=== PATIENT | male | born 1960 | race Caucasian/White ===

== ENCOUNTER 2019-03-22 11:19 | Inpatient (IN) | payer OTHER ==
[2019-03-22 11:43] VITALS: BMI 26.5
--- NOTE | 2019-03-22 12:43 | HP ---
CIWA Score Nausea/Vomitin Muscle Tremors: 3 Agitation: 2 Paroxysmal Sweats: 2 Orientation: 1-Uncertain about Date Tacttile Disturbances: 1-Very Mild Itch/Numbness Auditory Disturbances: 4-Moderate Hallucination Visual Disturbances: 1-Very Mild Sensitivity Headache: 5-Severe - Admission Criteria OASAS Guidelines: Admission for Medically Managed Detox: Requires at least one of the followin. CIWA greater than 12 2. Seizures within the past 24 hours 3. Delirium tremens within the past 24 hours 4. Hallucinations within the past 24 hours 5. Acute intervention needed for co occurring medical disorder 6. Acute intervention needed for co occurring psychiatric disorder 7. Severe withdrawal that cannot be handled at a lower level of care (continued vomiting, continued diarrhea, abnormal vital signs) requiring intravenous medication and/or fluids 8. Admitting History and Physical - Admission Chief Complaint: " I want to stop drinking." History of Present Illness: Patient is a 58 year old male who was in detox at another institution but had a seizure and sent to [facility] on the same day of the admission. He was then picked up from that hospital to bring here for continuation of detox. He was getting IV hydration while in [facility] He admits to having withdrawals and intoxication and having withdrawal seizure yesterday. He does not remember the detox he was admitted to prior to going to [facility]. He denies smoking, former smoker stopped 7 years ago PMH: HTN, Hypothyroidism, Chronic back pain Psurg: Back surgery for pinched nerve. All: None - Past Surgical History Additional Past Surgical History: spinal surgery - Advance Directives Advance Directives: No: Living Will, Health Care Proxy, DNR - Smoking History Smoking history: Former smoker Have you smoked in the past 12 months: No - Alcohol/Substance Use Hx Alcohol Use: Yes (1 pint of vodka daily) Number of Drinks Daily: 10 - Social History Usual Living Arrangement: Yes: Alone, Other (senior living) Do you think of yourself as: Straight/Heterosexual ADL: Independent Occupation: unemployed construction History of Recent Travel: No Admission ROS [facility] Chief Complaint: " I want to enter detox to stop drinking." Allergies/Adverse Reactions: Allergies Allergy/AdvReac Type Severity Reaction Status Date / Time No Known Allergies Allergy Verified 03/22/19 11:32 History of Present Illness: Patient is a 58 year old male who was in detox at another institution but had a seizure and sent to [facility] on the same day of the admission. He was then picked up from that hospital to bring here for continuation of detox. He was getting IV hydration while in [facility] He admits to having withdrawals and intoxication and having withdrawal seizure yesterday. He does not remember the detox he was admitted to prior to going to [facility]. He denies smoking, former smoker stopped 7 years ago PMH: HTN, Hypothyroidism, Chronic back pain Psurg: Back surgery for pinched nerve. All: None Exam Limitations: Physical Impairment, Other (chornic back pain from spinal surgery pinched nerve) - Ebola screening Have you traveled outside of the country in the last 21 days: No Have you had contact with anyone from an Ebola affected area: No Have you been sick,other than usual withdrawal symptoms: No Do you have a fever: No - Review of Systems Constitutional: Chills, Diaphoresis EENT: reports: Blurred Vision Respiratory: reports: No Symptoms reported Cardiac: reports: No Symptoms Reported GI: reports: No Symptoms Reported : reports: No Symptoms Reported Musculoskeletal: reports: Back Pain Integumentary: reports: No Symptoms Reported Neuro: reports: Headache, Seizure, Tremors Endocrine: reports: No Symptoms Reported Hematology: reports: No Symptoms Reported Psychiatric: reports: Judgement Intact, Mood/Affect Appropiate, Orientated x3 Other Systems: Reviewed and Negative Patient History - Patient Medical History Hx Anemia: No Hx Asthma: No Hx Chronic Obstructive Pulmonary Disease (COPD): No Hx Cancer: No Hx Cardiac Disorders: No Hx Congestive Heart Failure: No Hx Hypertension: Yes Hx Hypercholesterolemia: No Hx Pacemaker: No HX Cerebrovascular Accident: No Hx Seizures: Yes Hx Dementia: No Hx Diabetes: No Hx Gastrointestinal Disorders: No Hx Liver Disease: No Hx Genitourinary Disorders: No Hx Sexually Transmitted Disorders: No Hx Renal Disease (ESRD): No Hx Thyroid Disease: No Hx Human Immunodeficiency Virus (HIV): No Hx Hepatitis C: No Hx Depression: No Hx Suicide Attempt: No Hx Bipolar Disorder: No Hx Schizophrenia: No Other Medical History: hypothyroidism - Patient Surgical History Past Surgical History: Yes Hx Neurologic Surgery: Yes (spinal surger) - PPD History Previous Implant?: Yes Documented Results: Negative w/o proof Implanted On Prior [facility] Admission?: No Date: 02/10/19 Results: negative PPD to be Administered?: Yes - Smoking Cessation Smoking history: Former smoker Have you smoked in the past 12 months: No Hx Chewing Tobacco Use: No Initiated information on smoking cessation: No - Substances abused Alcohol Substance route: Oral Frequency: Daily Amount used: 5 pints of vodka &5-6 beers Age of first use: 14 Date of last use: 03/21/19 Admission Physical Exam [facility] - Vital Signs Vital Signs: Vital Signs - 24 hr 03/22/19 11:32 Temperature 97.4 F L Pulse Rate 67 Respiratory 20 Rate Blood Pressure 177/108 H - Physical General Appearance: Yes: Nourished HEENTM: Yes: EOMI, Hearing grossly Normal, Normal ENT Inspection, Normocephalic , Normal Voice, TIAGO, Pharynx Normal, Tm's normal Respiratory: Yes: Chest Non-Tender, Lungs Clear, Normal Breath Sounds, No Respiratory Distress, No Accessory Muscle Use Neck: Yes: No masses,lesions,Nodules, Trachea in good position Breast: Yes: Within Normal Limits, Axillae without masses, Breasts Symetrical Cardiology: Yes: Regular Rhythm, Regular Rate, S1, S2 Abdominal: Yes: Normal Bowel Sounds, Non Tender, Flat Genitourinary: Yes: Within Normal Limits Back: Yes: Within Normal Limits Musculoskeletal: Yes: full range of Motion, Gait Steady, Pelvis Stable Extremities: Yes: Normal Capillary Refill, Normal Inspection, Normal Range of Motion, Non-Tender Neurological: Yes: emergency operator II-XII NML intact, Fully Oriented, Alert, Motor Strength 5/5, Normal Mood/Affect, Normal Response Integumentary: Yes: Normal Color, Warm Lymphatic: Yes: Within Normal Limits - Diagnostic (1) Alcohol dependence with uncomplicated withdrawal Current Visit: Yes Status: Acute (2) Chronic back pain Current Visit: Yes Status: Acute (3) H/O Spinal surgery Current Visit: Yes Status: Acute (4) Hypertension Current Visit: Yes Status: Acute (5) Seizure disorder Current Visit: Yes Status: Acute Cleared for Admission [facility] - Detox or Rehab [facility] Level of Care: Medically Managed Detox Regimen/Protocol: Librium Screened but not Admitted - Documentation of Visit Screened but not Admitted: No Breathalyzer - Breathalyzer Breathalyzer: 0 Urine Drug Screen - Test Device Lot number: [id number] Expiration date: 11/20/20 - Control Is test valid?: Yes - Results Drug screen NEGATIVE: No Urine drug screen results: BUP-Suboxone Inpatient Rehab Admission - Rehab Decision to Admit Inpatient rehab admission?: No
[2019-03-22] MEDS ORDERED: chlordiazePOXIDE HCL 25 MG CAPSULE PO PRN (12:52)
[2019-03-22] MEDS ORDERED: MENTHOL/PHENOL 1 EACH UD MM PRN (12:52)
[2019-03-22] MEDS ORDERED: MAGNESIUM CITRATE 300 ML BOTTLE PO PRN (12:52)
[2019-03-22] MEDS ORDERED: IBUPROFEN 400 MG TABLET (FP) PO PRN (12:52)
[2019-03-22] MEDS ORDERED: ACETAMINOPHEN 325 MG TABLET (FP) PO PRN (12:52)
[2019-03-22] MEDS ORDERED: MAGNESIUM HYDROX 2400MG/30ML ORAL SUSPENSION 30 ML CUP PO PRN (12:52)
[2019-03-22] MEDS ORDERED: BISMUTH SUBSALICYLATE 262 MG/15 ML BTL PO PRN (12:52)
[2019-03-22] MEDS ORDERED: hydrOXYzine PAMOATE 25 MG CAPSULE (FP) PO PRN (12:52)
[2019-03-22 18:01] LABS: ALBUMIN 3.4 g/dl (3.4-5.0); BILIRUBIN,TOTAL 0.5 mg/dL (0.2-1); BLOOD UREA NITROGEN 13.1 mg/dL (7-18); CALCIUM 8.1 mg/dL (8.5-10.1); CREATININE 0.9 mg/dL (0.55-1.3); POTASSIUM 3.7 mmol/L (3.5-5.1); TOT PROT 7.3 g/dl (6.4-8.2)
[2019-03-22] MEDS: chlordiazePOXIDE HCL 25 MG CAPSULE PO SCH ×2 (18:30→22:07)
[2019-03-22 18:48] LABS: HEMATOCRIT 34.8 % (35.4-49); HEMOGLOBIN 10.4 GM/dL (11.7-16.9); MCH 22.6 pg (25.7-33.7); MCHC 29.8 g/dl (32.0-35.9); MEAN CELL VOLUME 75.7 fl (80-96); MEAN PLT VOLUME 8.6 fl (7.5-11.1); PLATELET COUNT 200 K/MM3 (134-434); RBC 4.59 M/mm3 (4.00-5.60); RDW 20.5 % (11.9-15.9); WHITE BLOOD COUNT 6.2 K/mm3 (4.0-10.0)
[2019-03-22] MEDS: THIAMINE HCL 100 MG TABLET (FP) PO SCH (22:07)
[2019-03-22] MEDS: MELATONIN 5 MG TABLETS PO PRN (22:08)
[2019-03-23] MEDS: chlordiazePOXIDE HCL 25 MG CAPSULE PO SCH ×4 (05:52→22:11)
[2019-03-23] MEDS: LEVOTHYROXINE NA 25 MCG TABLET (FP) PO SCH (06:09)
--- NOTE | 2019-03-23 10:00 | PN ---
[facility] CIWA - CIWA Score Nausea/Vomitin-No Nausea/No Vomiting Muscle Tremors: 3 Anxiety: 2 Agitation: 3 Paroxysmal Sweats: 3 Orientation: 0-Oriented Tacttile Disturbances: 0-None Auditory Disturbances: 0-None Visual Disturbances: 0-None Headache: 0-None Present CIWA-Ar Total Score: 11 S Progress Note (SOAP) Subjective: sweats mild shakes interrupted sleep agitation Objective: 03/23/19 09:58 Vital Signs Temperature 97.9 F 03/23/19 09:28 Pulse Rate 66 03/23/19 09:28 Respiratory Rate 18 03/23/19 09:28 Blood Pressure 126/74 03/23/19 09:28 O2 Sat by Pulse Oximetry (%) Laboratory Tests 03/22/19 03/22/19 03/22/19 13:10 13:10 13:10 WBC 6.2 RBC 4.59 Hgb 10.4 L Hct 34.8 L MCV 75.7 L MCH 22.6 L MCHC 29.8 L RDW 20.5 H Plt Count 200 MPV 8.6 Sodium 140 Potassium 3.7 Chloride 104 Carbon Dioxide 28 Anion Gap 7 L BUN 13.1 Creatinine 0.9 Est GFR (CKD-EPI)AfAm 107.97 Est GFR (CKD-EPI)NonAf 93.16 Random Glucose 96 Calcium 8.1 L Total Bilirubin 0.5 AST 51 H ALT 37 Alkaline Phosphatase 86 Total Protein 7.3 Albumin 3.4 RPR Titer Nonreactive HIV 1&2 Antibody Screen HIV P24 Antigen 03/22/19 13:10 WBC RBC Hgb Hct MCV MCH MCHC RDW Plt Count MPV Sodium Potassium Chloride Carbon Dioxide Anion Gap BUN Creatinine Est GFR (CKD-EPI)AfAm Est GFR (CKD-EPI)NonAf Random Glucose Calcium Total Bilirubin AST ALT Alkaline Phosphatase Total Protein Albumin RPR Titer HIV 1&2 Antibody Screen Negative HIV P24 Antigen Negative labs noted low H:H aaox3 ambulating no acute distress Assessment: 03/23/19 09:59 withdrawals Plan: continue detox increase fluids iron supplement ordered repeat labs
[2019-03-23] MEDS: PRENATAL VITAMINS W/ FOLIC ACID TABLET (FP) PO SCH (10:23)
[2019-03-23] MEDS: BUPRENORPHINE/NALOXONE 8 MG/2 MG FILM PACKET SL SCH (10:23)
[2019-03-23] MEDS: THIAMINE HCL 100 MG TABLET (FP) PO SCH (22:11)
[2019-03-24] MEDS: METHOCARBAMOL 500 MG TABLET PO PRN (02:13)
[2019-03-24] MEDS: chlordiazePOXIDE HCL 25 MG CAPSULE PO SCH ×4 (05:34→22:18)
[2019-03-24] MEDS: LEVOTHYROXINE NA 25 MCG TABLET (FP) PO SCH (06:58)
[2019-03-24 09:44] LABS: BASO % 0.7 % (0-2.0); EOS % 5.7 % (0-4.5); HEMATOCRIT 31.2 % (35.4-49); HEMOGLOBIN 10.1 GM/dL (11.7-16.9); LYMPH % 23.8 % (8-40); MCH 24.4 pg (25.7-33.7); MCHC 32.3 g/dl (32.0-35.9); MEAN CELL VOLUME 75.7 fl (80-96); MONO % 11.4 % (3.8-10.2); NEUT % 58.4 % (42.8-82.8); PLATELET COUNT 161 K/MM3 (134-434); RBC 4.13 M/mm3 (4.00-5.60); WHITE BLOOD COUNT 5.6 K/mm3 (4.0-10.0)
[2019-03-24] MEDS: BUPRENORPHINE/NALOXONE 8 MG/2 MG FILM PACKET SL SCH (10:23)
[2019-03-24] MEDS: PRENATAL VITAMINS W/ FOLIC ACID TABLET (FP) PO SCH (10:23)
--- NOTE | 2019-03-24 11:40 | PN ---
S CIWA - CIWA Score Nausea/Vomitin-No Nausea/No Vomiting Muscle Tremors: 2 Anxiety: 1-Mildly Anxious Agitation: 2 Paroxysmal Sweats: 2 Orientation: 0-Oriented Tacttile Disturbances: 0-None Auditory Disturbances: 0-None Visual Disturbances: 0-None Headache: 0-None Present CIWA-Ar Total Score: 7 BHS Progress Note (SOAP) Subjective: sweats shakes interrupted sleep Objective: 03/24/19 11:38 Vital Signs Temperature 96.3 F L 03/24/19 09:37 Pulse Rate 63 03/24/19 09:37 Respiratory Rate 20 03/24/19 09:37 Blood Pressure 101/65 03/24/19 09:37 O2 Sat by Pulse Oximetry (%) Laboratory Tests 03/22/19 03/22/19 03/22/19 13:10 13:10 13:10 WBC 6.2 RBC 4.59 Hgb 10.4 L Hct 34.8 L MCV 75.7 L MCH 22.6 L MCHC 29.8 L RDW 20.5 H Plt Count 200 MPV 8.6 Absolute Neuts (auto) Neutrophils % Lymphocytes % Monocytes % Eosinophils % Basophils % Nucleated RBC % Sodium 140 Potassium 3.7 Chloride 104 Carbon Dioxide 28 Anion Gap 7 L BUN 13.1 Creatinine 0.9 Est GFR (CKD-EPI)AfAm 107.97 Est GFR (CKD-EPI)NonAf 93.16 Random Glucose 96 Calcium 8.1 L Total Bilirubin 0.5 AST 51 H ALT 37 Alkaline Phosphatase 86 Total Protein 7.3 Albumin 3.4 RPR Titer Nonreactive HIV 1&2 Antibody Screen HIV P24 Antigen 03/22/19 03/24/19 13:10 07:40 WBC 5.6 RBC 4.13 Hgb 10.1 L Hct 31.2 L MCV 75.7 L MCH 24.4 L MCHC 32.3 RDW 20.0 H Plt Count 161 MPV 9.0 Absolute Neuts (auto) 3.3 Neutrophils % 58.4 Lymphocytes % 23.8 Monocytes % 11.4 H Eosinophils % 5.7 H Basophils % 0.7 Nucleated RBC % 0 Sodium Potassium Chloride Carbon Dioxide Anion Gap BUN Creatinine Est GFR (CKD-EPI)AfAm Est GFR (CKD-EPI)NonAf Random Glucose Calcium Total Bilirubin AST ALT Alkaline Phosphatase Total Protein Albumin RPR Titer HIV 1&2 Antibody Screen Negative HIV P24 Antigen Negative labs noted low H:H; iron supplements ordered aaox3 ambulating no acute distress Assessment: 03/24/19 11:39 withdrawals Plan: continue detox increase fluids iron supplement ordered
[2019-03-24] MEDS: FERROUS SO4 325 MG TABLET (FP) PO SCH ×2 (13:25→16:32)
[2019-03-24] MEDS: THIAMINE HCL 100 MG TABLET (FP) PO SCH (22:17)
[2019-03-25] MEDS ORDERED: chlordiazePOXIDE HCL 10 MG CAPSULE PO PRN
[2019-03-25] MEDS: chlordiazePOXIDE HCL 10 MG CAPSULE PO SCH ×4 (05:39→22:16)
[2019-03-25] MEDS: LEVOTHYROXINE NA 25 MCG TABLET (FP) PO SCH (06:28)
[2019-03-25] MEDS: FERROUS SO4 325 MG TABLET (FP) PO SCH ×3 (07:57→17:16)
[2019-03-25] MEDS: PRENATAL VITAMINS W/ FOLIC ACID TABLET (FP) PO SCH (10:11)
[2019-03-25] MEDS: BUPRENORPHINE/NALOXONE 8 MG/2 MG FILM PACKET SL SCH ×2 (10:14→22:17)
--- NOTE | 2019-03-25 10:26 | PN ---
S CIWA - CIWA Score Nausea/Vomitin-No Nausea/No Vomiting Muscle Tremors: 3 Anxiety: 2 Agitation: 2 Paroxysmal Sweats: 1-Minimal Palms Moist Orientation: 0-Oriented Tacttile Disturbances: 0-None Auditory Disturbances: 0-None Visual Disturbances: 0-None Headache: 0-None Present CIWA-Ar Total Score: 8 BHS Progress Note (SOAP) Subjective: i want my suboxone changed to twice a day sweats interrupted sleep agitation Objective: 03/25/19 10:26 Vital Signs Temperature 98.6 F 03/25/19 09:27 Pulse Rate 78 03/25/19 09:27 Respiratory Rate 18 03/25/19 09:27 Blood Pressure 122/90 03/25/19 09:27 O2 Sat by Pulse Oximetry (%) Laboratory Tests 03/22/19 03/22/19 03/22/19 13:10 13:10 13:10 WBC 6.2 RBC 4.59 Hgb 10.4 L Hct 34.8 L MCV 75.7 L MCH 22.6 L MCHC 29.8 L RDW 20.5 H Plt Count 200 MPV 8.6 Absolute Neuts (auto) Neutrophils % Lymphocytes % Monocytes % Eosinophils % Basophils % Nucleated RBC % Sodium 140 Potassium 3.7 Chloride 104 Carbon Dioxide 28 Anion Gap 7 L BUN 13.1 Creatinine 0.9 Est GFR (CKD-EPI)AfAm 107.97 Est GFR (CKD-EPI)NonAf 93.16 Random Glucose 96 Calcium 8.1 L Total Bilirubin 0.5 AST 51 H ALT 37 Alkaline Phosphatase 86 Total Protein 7.3 Albumin 3.4 RPR Titer Nonreactive HIV 1&2 Antibody Screen HIV P24 Antigen 03/22/19 03/24/19 13:10 07:40 WBC 5.6 RBC 4.13 Hgb 10.1 L Hct 31.2 L MCV 75.7 L MCH 24.4 L MCHC 32.3 RDW 20.0 H Plt Count 161 MPV 9.0 Absolute Neuts (auto) 3.3 Neutrophils % 58.4 Lymphocytes % 23.8 Monocytes % 11.4 H Eosinophils % 5.7 H Basophils % 0.7 Nucleated RBC % 0 Sodium Potassium Chloride Carbon Dioxide Anion Gap BUN Creatinine Est GFR (CKD-EPI)AfAm Est GFR (CKD-EPI)NonAf Random Glucose Calcium Total Bilirubin AST ALT Alkaline Phosphatase Total Protein Albumin RPR Titer HIV 1&2 Antibody Screen Negative HIV P24 Antigen Negative labs noted labs repeated for tomorrow morning aaox3 ambulating no acute distress Assessment: 03/25/19 10:28 mild withdrawals Plan: continue detox suboxone ordered changed to bid as per pt request.
[2019-03-25] MEDS: THIAMINE HCL 100 MG TABLET (FP) PO SCH (22:16)
[2019-03-25] MEDS: MELATONIN 5 MG TABLETS PO PRN (22:17)
[2019-03-26] MEDS: METHOCARBAMOL 500 MG TABLET PO PRN ×2 (05:30→22:14)
[2019-03-26] MEDS: chlordiazePOXIDE HCL 10 MG CAPSULE PO SCH ×2 (05:30→17:29)
[2019-03-26] MEDS: FERROUS SO4 325 MG TABLET (FP) PO SCH ×3 (07:33→17:27)
[2019-03-26] MEDS: LEVOTHYROXINE NA 25 MCG TABLET (FP) PO SCH (07:33)
[2019-03-26 09:34] LABS: ALBUMIN 2.7 g/dl (3.4-5.0); BILIRUBIN,TOTAL 0.4 mg/dL (0.2-1); BLOOD UREA NITROGEN 11.3 mg/dL (7-18); CALCIUM 8.2 mg/dL (8.5-10.1); POTASSIUM 4.3 mmol/L (3.5-5.1); TOT PROT 5.9 g/dl (6.4-8.2)
[2019-03-26] MEDS: BUPRENORPHINE/NALOXONE 8 MG/2 MG FILM PACKET SL SCH ×2 (09:42→22:15)
[2019-03-26] MEDS: PRENATAL VITAMINS W/ FOLIC ACID TABLET (FP) PO SCH (09:42)
[2019-03-26] MEDS: ACETAMINOPHEN 325 MG TABLET (FP) PO PRN (09:44)
[2019-03-26] MEDS ORDERED: cloNIDine HCL 0.1 MG TABLET PO PRN (16:35)
--- NOTE | 2019-03-26 16:37 | PN ---
S CIWA - CIWA Score Nausea/Vomitin-No Nausea/No Vomiting Muscle Tremors: None Anxiety: 2 Agitation: 2 Paroxysmal Sweats: 2 Orientation: 0-Oriented Tacttile Disturbances: 0-None Auditory Disturbances: 0-None Visual Disturbances: 0-None Headache: 0-None Present CIWA-Ar Total Score: 6 BHS Progress Note (SOAP) Subjective: Tremor, sweating, back pain Objective: 03/26/19 16:32 Last Vital Signs Temp Pulse Resp BP Pulse Ox 98.2 F 76 20 152/82 03/26/19 14:03 03/26/19 14:03 03/26/19 14:03 03/26/19 14:03 Elevated b/p: denies htn (not on med) Laboratory Tests 03/22/19 03/22/19 03/22/19 13:10 13:10 13:10 WBC 6.2 RBC 4.59 Hgb 10.4 L Hct 34.8 L MCV 75.7 L MCH 22.6 L MCHC 29.8 L RDW 20.5 H Plt Count 200 MPV 8.6 Absolute Neuts (auto) Neutrophils % Lymphocytes % Monocytes % Eosinophils % Basophils % Nucleated RBC % Sodium 140 Potassium 3.7 Chloride 104 Carbon Dioxide 28 Anion Gap 7 L BUN 13.1 Creatinine 0.9 Est GFR (CKD-EPI)AfAm 107.97 Est GFR (CKD-EPI)NonAf 93.16 Random Glucose 96 Calcium 8.1 L Total Bilirubin 0.5 AST 51 H ALT 37 Alkaline Phosphatase 86 Total Protein 7.3 Albumin 3.4 RPR Titer Nonreactive HIV 1&2 Antibody Screen HIV P24 Antigen 03/22/19 03/24/19 03/26/19 13:10 07:40 07:50 WBC 5.6 RBC 4.13 Hgb 10.1 L Hct 31.2 L MCV 75.7 L MCH 24.4 L MCHC 32.3 RDW 20.0 H Plt Count 161 MPV 9.0 Absolute Neuts (auto) 3.3 Neutrophils % 58.4 Lymphocytes % 23.8 Monocytes % 11.4 H Eosinophils % 5.7 H Basophils % 0.7 Nucleated RBC % 0 Sodium 136 Potassium 4.3 Chloride 102 Carbon Dioxide 31 Anion Gap 3 L BUN 11.3 Creatinine 1.0 Est GFR (CKD-EPI)AfAm 95.06 Est GFR (CKD-EPI)NonAf 82.02 Random Glucose 83 Calcium 8.2 L Total Bilirubin 0.4 AST 25 ALT 23 Alkaline Phosphatase 67 Total Protein 5.9 L Albumin 2.7 L RPR Titer HIV 1&2 Antibody Screen Negative HIV P24 Antigen Negative Labs reviewed: anemia, mild Assessment: 03/26/19 16:33 Withdrawal sxs Plan: Continue detox Encouraged PO water intake Scheduled for discharge tomorrow Anemia: most likely due to substance use, on iron supplement, follow up with PCP for management Elevated b/p: denies htn, start clonidine prn
[2019-03-26] MEDS: MAG HYDROX/AL HYDROX/SIMETH 30 ML UNIT-DOSE CUP PO PRN (17:30)
[2019-03-26] MEDS: THIAMINE HCL 100 MG TABLET (FP) PO SCH (22:14)
[2019-03-27] MEDS: ACETAMINOPHEN 325 MG TABLET (FP) PO PRN (01:53)
[2019-03-27] MEDS: MAG HYDROX/AL HYDROX/SIMETH 30 ML UNIT-DOSE CUP PO PRN (01:53)
[2019-03-27] MEDS ORDERED: IBUPROFEN 400 MG TABLET (FP) PO PRN (01:58)
[2019-03-27] MEDS ORDERED: chlordiazePOXIDE HCL 10 MG CAPSULE PO ONE (05:00)
[2019-03-27 05:48] VITALS: BP 145/77; PULSE 82; TEMP 98.1
[2019-03-27] MEDS: LEVOTHYROXINE NA 25 MCG TABLET (FP) PO SCH (06:01)
[2019-03-27] MEDS ORDERED: hydrOXYzine PAMOATE 25 MG CAPSULE (FP) PO PRN (06:17)
[2019-03-27] MEDS: METHOCARBAMOL 500 MG TABLET PO PRN (06:39)
[2019-03-27] MEDS: FERROUS SO4 325 MG TABLET (FP) PO SCH ×2 (07:44→11:17)
--- NOTE | 2019-03-27 09:15 | DS ---
[facility] Detox Discharge Summary Admission Date: 03/22/19 Discharge Date: 03/27/19 - History Present History: Alcohol Dependence - Physical Exam Results Vital Signs: Vital Signs Temperature 98.1 F 03/27/19 05:47 Pulse Rate 82 03/27/19 05:47 Respiratory Rate 18 03/27/19 05:47 Blood Pressure 145/77 03/27/19 05:47 O2 Sat by Pulse Oximetry (%) Pertinent Admission Physical Exam Findings: pt arrived in withdrawals Vital Signs Temperature 98.1 F 03/27/19 05:47 Pulse Rate 82 03/27/19 05:47 Respiratory Rate 18 03/27/19 05:47 Blood Pressure 145/77 03/27/19 05:47 O2 Sat by Pulse Oximetry (%) Laboratory Tests 03/22/19 03/22/19 03/22/19 13:10 13:10 13:10 WBC 6.2 RBC 4.59 Hgb 10.4 L Hct 34.8 L MCV 75.7 L MCH 22.6 L MCHC 29.8 L RDW 20.5 H Plt Count 200 MPV 8.6 Absolute Neuts (auto) Neutrophils % Lymphocytes % Monocytes % Eosinophils % Basophils % Nucleated RBC % Sodium 140 Potassium 3.7 Chloride 104 Carbon Dioxide 28 Anion Gap 7 L BUN 13.1 Creatinine 0.9 Est GFR (CKD-EPI)AfAm 107.97 Est GFR (CKD-EPI)NonAf 93.16 Random Glucose 96 Calcium 8.1 L Total Bilirubin 0.5 AST 51 H ALT 37 Alkaline Phosphatase 86 Total Protein 7.3 Albumin 3.4 RPR Titer Nonreactive HIV 1&2 Antibody Screen HIV P24 Antigen 03/22/19 03/24/19 03/26/19 13:10 07:40 07:50 WBC 5.6 RBC 4.13 Hgb 10.1 L Hct 31.2 L MCV 75.7 L MCH 24.4 L MCHC 32.3 RDW 20.0 H Plt Count 161 MPV 9.0 Absolute Neuts (auto) 3.3 Neutrophils % 58.4 Lymphocytes % 23.8 Monocytes % 11.4 H Eosinophils % 5.7 H Basophils % 0.7 Nucleated RBC % 0 Sodium 136 Potassium 4.3 Chloride 102 Carbon Dioxide 31 Anion Gap 3 L BUN 11.3 Creatinine 1.0 Est GFR (CKD-EPI)AfAm 95.06 Est GFR (CKD-EPI)NonAf 82.02 Random Glucose 83 Calcium 8.2 L Total Bilirubin 0.4 AST 25 ALT 23 Alkaline Phosphatase 67 Total Protein 5.9 L Albumin 2.7 L RPR Titer HIV 1&2 Antibody Screen Negative HIV P24 Antigen Negative pt is aaox3 ambulating no acute distress no s/s of withdrawal - Treatment Hospital Course: Detox Protocol Followed, Detoxed Safely, Responded well, Discharged Condition Good, Rehab Referral Accepted - Medication Discharge Medications: Ambulatory Orders Buprenorphine/Naloxone [Suboxone 8 mg/2Mg Sl Film -] 1 each SL TID 03/22/19 Levothyroxine [Synthroid -] 25 mcg PO DAILY 03/22/19 Meloxicam 15 mg PO DAILY 03/22/19 Tizanidine HCl 4 mg PO TID 03/22/19 - Diagnosis (1) Alcohol dependence with uncomplicated withdrawal Current Visit: Yes Status: Chronic (2) Chronic back pain Current Visit: Yes Status: Chronic Qualifiers: Back pain location: low back pain Back pain laterality: unspecified (3) H/O Spinal surgery Current Visit: Yes Status: Chronic (4) Hypertension Current Visit: Yes Status: Chronic Qualifiers: Hypertension type: essential hypertension Qualified Code(s): I10 - Essential (primary) hypertension (5) Seizure disorder Current Visit: Yes Status: Suspected - AMA Did Patient Leave Against Medical Advice: No
[2019-03-27] MEDS: PRENATAL VITAMINS W/ FOLIC ACID TABLET (FP) PO SCH (10:22)
[2019-03-27] MEDS: BUPRENORPHINE/NALOXONE 8 MG/2 MG FILM PACKET SL SCH (10:22)
== END 2019-03-27 10:20 | disposition home or self-care (01) | DRG 775 ==
LOC: YASAS 11:19 → Y6N 13:21
PROVIDERS: ADMIT Allergy & Immunology; ATTEND Allergy & Immunology
PROC: HZ2ZZZZ Detoxification Services for Substance Abuse Treatment (ICD-10-PCS; principal; 2019-03-22)
DX: F10.230 Alcohol dependence with withdrawal, uncomplicated (principal); I10 Essential (primary) hypertension; M54.5 Low back pain; G89.29 Other chronic pain; G40.909 Epilepsy, unspecified, not intractable, without status epilepticus; D64.9 Anemia, unspecified; E03.9 Hypothyroidism, unspecified; Z87.891 Personal history of nicotine dependence; Z98.890 Other specified postprocedural states
CPT/HCPCS: 36415; 80053; 85025; 85027; 86593; 87389

== ENCOUNTER 2019-06-28 19:08 | Inpatient (IN) | payer OTHER ==
[2019-06-28 22:04] VITALS: BMI 26.6
--- NOTE | 2019-06-28 22:25 | HP ---
CIWA Score - Admission Criteria OASAS Guidelines: Admission for Medically Managed Detox: Requires at least one of the followin. CIWA greater than 12 2. Seizures within the past 24 hours 3. Delirium tremens within the past 24 hours 4. Hallucinations within the past 24 hours 5. Acute intervention needed for co occurring medical disorder 6. Acute intervention needed for co occurring psychiatric disorder 7. Severe withdrawal that cannot be handled at a lower level of care (continued vomiting, continued diarrhea, abnormal vital signs) requiring intravenous medication and/or fluids 8. 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 Travel: No Admission [facility] Allergies/Adverse Reactions: Allergies Allergy/AdvReac Type Severity Reaction Status Date / Time No Known Allergies Allergy Verified 06/28/19 21:55 History of Present Illness: Click the Report Suspicious Activity button to report information related to controlled substance suspicious activity to the [facility] Patient History - Patient Medical History Hx Anemia: No Hx Asthma: No Hx Chronic Obstructive Pulmonary Disease (COPD): No Hx Cancer: No Hx Cardiac Disorders: No Hx Congestive Heart Failure: No Hx Hypertension: Yes Hx Hypercholesterolemia: No Hx Pacemaker: No HX Cerebrovascular Accident: No Hx Seizures: No Hx Dementia: No Hx Diabetes: No Hx Gastrointestinal Disorders: No Hx Liver Disease: No Hx Genitourinary Disorders: No Hx Sexually Transmitted Disorders: No Hx Renal Disease (ESRD): No Hx Thyroid Disease: No Hx Human Immunodeficiency Virus (HIV): No Hx Hepatitis C: No Hx Depression: Yes Hx Suicide Attempt: No Hx Bipolar Disorder: No Hx Schizophrenia: No - Patient Surgical History Past Surgical History: Yes Hx Neurologic Surgery: Yes (spinal surgery) Anesthesia Reaction: No - PPD History Date: 03/24/19 Results: negative - Smoking Cessation Smoking history: Former smoker Have you smoked in the past 12 months: No If you are a former smoker, when did you quit?: 2011 Hx Chewing Tobacco Use: No - Substances abused Heroin Other (specify): sniff Frequency: Daily Amount used: 1 bag Age of first use: 17 Date of last use: 06/27/19 Alcohol Substance route: Oral Amount used: 2 bottle vodka Age of first use: 16 Date of last use: 06/28/19 Admission Physical Exam [facility] - Vital Signs Vital Signs: Vital Signs - 24 hr 06/28/19 21:55 Temperature 97.7 F Pulse Rate 88 Respiratory 20 Rate Blood Pressure 150/84 Breathalyzer - Breathalyzer Breathalyzer: 0 POC Urine test - Test device test lot number: n/a Urine Drug Screen - Test Device Lot number: [id number] Expiration date: 12/20/20 - Control Is test valid?: Yes - Results Drug screen NEGATIVE: No Urine drug screen results: BZO-Benzodiazepines, BUP-Suboxone
--- NOTE | 2019-06-29 00:52 | HP ---
"CIWA Score Nausea/Vomitin (vomiting x 2) Muscle Tremors: 4-Moderate,w/Arms Extend Anxiety: 3 Agitation: 1-Slight > Activity Paroxysmal Sweats: 2 Orientation: 0-Oriented Tacttile Disturbances: 0-None Auditory Disturbances: 0-None Visual Disturbances: 0-None Headache: 4-Moderately Severe CIWA-Ar Total Score: 17 - Admission Criteria OASAS Guidelines: Admission for Medically Managed Detox: Requires at least one of the followin. CIWA greater than 12 2. Seizures within the past 24 hours 3. Delirium tremens within the past 24 hours 4. Hallucinations within the past 24 hours 5. Acute intervention needed for co occurring medical disorder 6. Acute intervention needed for co occurring psychiatric disorder 7. Severe withdrawal that cannot be handled at a lower level of care (continued vomiting, continued diarrhea, abnormal vital signs) requiring intravenous medication and/or fluids 8. Admitting History and Physical - Past Medical History Cardiovascular: Yes: HTN Musculoskeletal: Yes: Chronic low back pain - Smoking History Smoking history: Former smoker Have you smoked in the past 12 months: No If you are a former smoker, when did you quit?: 2012 - Alcohol/Substance Use Hx Alcohol Use: Yes Number of Drinks Daily: 10 History of Substance Use: reports: None - Social History ADL: Independent Occupation: unemployed construction History of Recent Travel: No Admission [facility] Chief Complaint: Alcohol withdrawal symptoms, on buprenorphine-naloxone 8-2 mg sl film Allergies/Adverse Reactions: Allergies Allergy/AdvReac Type Severity Reaction Status Date / Time No Known Allergies Allergy Verified 06/28/19 21:55 History of Present Illness: 58 years old male with a long history of alcohol and heroin dependence is seeking admission to detox. Patient last detox was for the period 05/02/2019- and he reports that he relapsed soon after discharge because he lost his of 30 years. He has medical history of hypertension, blood clots, ( bilateral legs), hypothyroid, seizure, chronic back pain and Confidential Drug Utilization Report Search Terms: forrest amos, 1960 Search Date: 06/28/2019 10:23:11 PM The Drug Utilization Report below displays all of the controlled substance prescriptions, if any, that your patient has filled in the last twelve months. The information displayed on this report is compiled from pharmacy submissions to the Department, and accurately reflects the information as submitted by the pharmacies. This report was requested by: Poppy Dunham | Reference #: [id number] You have not added a TWYLA number. Keeping your TWYLA number(s) up to date on the My TWYLA Numbers page will enable the separation of your prescriptions from others ' in the search results. Others' Prescriptions Patient Name: Forrest Amos Date: 1960 Address: [facility] [place] [id number] Sex: Male Rx Written Rx Dispensed Drug Quantity Days Supply Prescriber Name 06/15/2019 06/15/2019 buprenorphine-naloxone 8-2 mg sl film 42 14 CheUrsula solis [employer] 06/07/2019 06/07/2019 buprenorphine-naloxone 8-2 mg sl film 21 7 Ursula Chow [employer] INSURANCE AGENT 05/18/2019 05/18/2019 buprenorphine-naloxone 8-2 mg sl film 16 6 Chez, Ursula [employer] INSURANCE AGENT 05/09/2019 05/09/2019 buprenorphine-naloxone 8-2 mg sl film 21 7 Chewill, Ursula [employer] INSURANCE AGENT Patient Name: Forrest Amos Date: 1960 Address: [address] [place] [address] Sex: Male Rx Written Rx Dispensed Drug Quantity Days Supply Prescriber Name 04/19/2019 04/21/2019 buprenorphine-naloxone 8-2 mg sl film 42 14 Ursula Chow [employer] INSURANCE AGENT 04/07/2019 04/07/2019 buprenorphine-naloxone 8-2 mg sl film 42 14 Miguel Bourgeois 03/07/2019 03/08/2019 buprenorphine-naloxone 8-2 mg sl film 90 30 Chewill Ursula EDEN 03/01/2019 03/01/2019 buprenorphine-naloxone 8-2 mg sl film 21 7 Miguel Bourgeois 02/22/2019 02/22/2019 buprenorphine-naloxone 8-2 mg sl film 21 7 CheSerenity soliscy [employer] INSURANCE AGENT 02/17/2019 02/17/2019 suboxone 8 mg-2 mg sl film 21 7 Chez, Ursula [employer] INSURANCE AGENT 02/10/2019 02/10/2019 suboxone 8 mg-2 mg sl film 7 7 Chewill, Ursula HE[employer] INSURANCE AGENT * - Drugs marked with an asterisk are compound drugs. If the compound drug is made up of more than one controlled substance, then each controlled substance will be a separate row in the table. Exam Limitations: Physical Impairment - Ebola screening Have you traveled outside of the country in the last 21 days: No Have you had contact with anyone from an Ebola affected area: No Do you have a fever: No - Review of Systems Constitutional: Chills, Malaise, Night Sweats, Changes in sleep EENT: reports: Nose Congestion Respiratory: reports: No Symptoms reported Cardiac: reports: No Symptoms Reported GI: reports: No Symptoms Reported, Diarrhea, Nausea, Poor Appetite, Poor Fluid Intake, Vomiting, Abdominal cramping Musculoskeletal: reports: Back Pain Integumentary: reports: Dryness, Flushing Neuro: reports: Headache, Tremors Endocrine: reports: No Symptoms Reported Hematology: reports: No Symptoms Reported Psychiatric: reports: Mood/Affect Appropiate, Orientated x3 Other Systems: Reviewed and Negative Patient History - Patient Medical History Hx Anemia: No Hx Asthma: No Hx Chronic Obstructive Pulmonary Disease (COPD): No Hx Cancer: No Hx Cardiac Disorders: No Hx Congestive Heart Failure: No Hx Hypertension: Yes (Not on medication) Hx Hypercholesterolemia: No Hx Pacemaker: No HX Cerebrovascular Accident: No Hx Seizures: Yes (Not on medication) Hx Dementia: No Hx Diabetes: No Hx Gastrointestinal Disorders: No Hx Liver Disease: No Hx Genitourinary Disorders: No Hx Sexually Transmitted Disorders: No Hx Renal Disease (ESRD): No Hx Thyroid Disease: No Hx Human Immunodeficiency Virus (HIV): No (Negative 2017) Hx Hepatitis C: No Hx Depression: Yes Hx Suicide Attempt: No Hx Bipolar Disorder: No Hx Schizophrenia: No Other Medical History: Chronic back pain - Patient Surgical History Past Surgical History: Yes Hx Neurologic Surgery: Yes (spinal surgery) Hx Cataract Extraction: No Hx Cardiac Surgery: No Hx Lung Surgery: No Hx Abdominal Surgery: No Hx Appendectomy: No Hx Cholecystectomy: No Hx Genitourinary Surgery: No Hx Orthopedic Surgery: No Anesthesia Reaction: No - PPD History Previous Implant?: Yes Documented Results: Negative w/proof Implanted On Prior R Admission?: Yes Date: 03/24/19 Results: negative PPD to be Administered?: No - Reproductive History Patient is a Female of Child Bearing Age (11 -55 yrs old): No (male) - Smoking Cessation Smoking history: Former smoker Have you smoked in the past 12 months: No If you are a former smoker, when did you quit?: 2011 Hx Chewing Tobacco Use: No Initiated information on smoking cessation: No - Substance & Tx. History Hx Alcohol Use: Yes Hx Substance Use: Yes Substance Use Type: Alcohol, Heroin, Opiates Hx Substance Use Treatment: Yes ([facility]) - Substances abused Heroin Other (specify): sniff Frequency: Daily Amount used: 1 bag Age of first use: 17 Date of last use: 06/27/19 Alcohol Substance route: Oral Amount used: 2 bottle vodka Age of first use: 16 Date of last use: 06/28/19 Admission Physical Exam [facility] - Vital Signs Vital Signs: Vital Signs - 24 hr 06/28/19 21:55 Temperature 97.7 F Pulse Rate 88 Respiratory 20 Rate Blood Pressure 150/84 - Physical General Appearance: Yes: Moderate Distress, Tremorous, Sweating, Anxious HEENTM: Yes: Nasal Congestion Respiratory: Yes: Lungs Clear, Normal Breath Sounds, No Respiratory Distress Neck: Yes: Within Normal Limits Breast: Yes: Breast Exam Deferred Cardiology: Yes: Within Normal Limits Abdominal: Yes: Normal Bowel Sounds, Soft Genitourinary: Yes: Within Normal Limits Back: Yes: Normal Inspection Musculoskeletal: Yes: Back pain, Muscle Pain Extremities: Yes: Tremors Neurological: Yes: Alert, Motor Strength 5/5, Normal Mood/Affect Integumentary: Yes: Warm Lymphatic: Yes: Within Normal Limits - Diagnostic (1) Hypothyroid Current Visit: Yes Status: Chronic Qualifiers: Hypothyroidism type: unspecified Qualified Code(s): E03.9 - Hypothyroidism , unspecified (2) Alcohol dependence with uncomplicated withdrawal Current Visit: Yes Status: Acute (3) Encounter for monitoring Suboxone maintenance therapy Current Visit: Yes Status: Acute (4) Chronic back pain Current Visit: Yes Status: Chronic Qualifiers: Back pain location: low back pain Back pain laterality: unspecified (5) Hypertension Current Visit: Yes Status: Chronic Qualifiers: Hypertension type: essential hypertension Qualified Code(s): I10 - Essential (primary) hypertension (6) Seizure disorder Current Visit: Yes Status: Chronic Cleared for Admission [facility] - Detox or Rehab [facility] Level of Care: Medically Managed Detox Regimen/Protocol: Librium Claeared for Rehab Admission: No Breathalyzer - Breathalyzer Breathalyzer: 0 POC Urine test - Test device test lot number: n/[id number] Urine Drug Screen - Test Device Lot number: [id number] Expiration date: 12/20/20 - Control Is test valid?: Yes - Results Drug screen NEGATIVE: No Urine drug screen results: BZO-Benzodiazepines, BUP-Suboxone Inpatient Rehab Admission - Rehab Decision to Admit Inpatient rehab admission?: No"
[2019-06-29] MEDS ORDERED: chlordiazePOXIDE HCL 10 MG CAPSULE PO PRN (01:25)
[2019-06-29] MEDS ORDERED: ACETAMINOPHEN 325 MG TABLET (FP) PO PRN ×2 (01:25)
[2019-06-29] MEDS ORDERED: MENTHOL/PHENOL 1 EACH UD MM PRN (01:25)
[2019-06-29] MEDS ORDERED: IBUPROFEN 400 MG TABLET (FP) PO PRN (01:25)
[2019-06-29] MEDS ORDERED: MAG HYDROX/AL HYDROX/SIMETH 30 ML UNIT-DOSE CUP PO PRN (01:25)
[2019-06-29] MEDS ORDERED: MAGNESIUM CITRATE 300 ML BOTTLE PO PRN (01:25)
[2019-06-29] MEDS ORDERED: BISMUTH SUBSALICYLATE 524 MG/30 ML UD PO PRN (01:25)
[2019-06-29] MEDS ORDERED: MAGNESIUM HYDROX 2400MG/30ML ORAL SUSPENSION 30 ML CUP PO PRN (01:25)
[2019-06-29] MEDS ORDERED: METHOCARBAMOL 500 MG TABLET PO PRN (01:25)
[2019-06-29] MEDS: BUPRENORPHINE/NALOXONE 8 MG/2 MG FILM PACKET SL SCH ×3 (06:23→22:21)
[2019-06-29] MEDS: chlordiazePOXIDE HCL 25 MG CAPSULE PO SCH ×3 (06:23→22:21)
[2019-06-29] MEDS: LEVOTHYROXINE NA 25 MCG TABLET (FP) PO SCH (06:23)
[2019-06-29] MEDS: TIZANIDINE HCL 4 MG TABLET PO SCH ×3 (09:04→22:40)
[2019-06-29] MEDS: HYDROCHLOROTHIAZIDE 12.5 MG CAPSULE (FP) PO SCH (10:54)
[2019-06-29] MEDS: PRENATAL VITAMINS W/ FOLIC ACID TABLET (FP) PO SCH (10:55)
--- NOTE | 2019-06-29 12:11 | PN ---
S CIWA - CIWA Score Nausea/Vomitin-Mild Nausea/No Vomiting Muscle Tremors: 3 Anxiety: 2 Agitation: 1-Slight > Activity Paroxysmal Sweats: 2 Orientation: 0-Oriented Tacttile Disturbances: 0-None Auditory Disturbances: 0-None Visual Disturbances: 1-Very Mild Sensitivity Headache: 2-Mild CIWA-Ar Total Score: 12 [facility] Progress Note (SOAP) Subjective: 58 years old male admitted on 06/28/19 for alcohol withdrawal sx management treating with librium detox regiment feeling ok today suboxone 8-2mg sl tid daily Objective: 06/29/19 12:17 Vital Signs Temperature 98.7 F 06/29/19 09:24 Pulse Rate 93 H 06/29/19 09:24 Respiratory Rate 18 06/29/19 09:24 Blood Pressure 130/84 06/29/19 09:24 O2 Sat by Pulse Oximetry (%) 06/29/19 12:17 lab pending Assessment: 06/29/19 12:28 alcohol withdrawal Plan: librium regiment
--- NOTE | 2019-06-29 14:29 | EKG ---
Test Reason : Blood Pressure : / mmHG Vent. Rate : 080 BPM Atrial Rate : 080 BPM P-R Int : 148 ms QRS Dur : 092 ms QT Int : 402 ms P-R-T Axes : 071 059 099 degrees QTc Int : 463 ms NORMAL SINUS RHYTHM MINIMAL VOLTAGE CRITERIA FOR LVH, MAY BE NORMAL VARIANT BORDERLINE ECG NO PREVIOUS ECGS AVAILABLE Confirmed by AURELIO GARCIA MD ([id number]) on 06/29/2019 2:29:20 PM Referred By: Confirmed By:AURELIO GARCIA MD
[2019-06-29] MEDS: RIVAROXABAN 20 MG TABLET PO SCH (17:55)
[2019-06-29] MEDS: THIAMINE HCL 100 MG TABLET (FP) PO SCH (22:21)
[2019-06-29] MEDS: MELATONIN 5 MG TABLETS PO PRN (22:23)
[2019-06-30] MEDS: TIZANIDINE HCL 4 MG TABLET PO SCH ×3 (05:35→22:08)
[2019-06-30] MEDS: chlordiazePOXIDE 5 MG CAPSULE PO SCH ×3 (05:35→22:05)
[2019-06-30] MEDS: BUPRENORPHINE/NALOXONE 8 MG/2 MG FILM PACKET SL SCH ×3 (05:35→22:08)
[2019-06-30] MEDS: LEVOTHYROXINE NA 25 MCG TABLET (FP) PO SCH (06:41)
[2019-06-30] MEDS: PRENATAL VITAMINS W/ FOLIC ACID TABLET (FP) PO SCH (10:26)
[2019-06-30] MEDS: HYDROCHLOROTHIAZIDE 12.5 MG CAPSULE (FP) PO SCH (10:26)
[2019-06-30 10:44] LABS: HEMATOCRIT 36.8 % (35.4-49); HEMOGLOBIN 12.1 GM/dL (11.7-16.9); MCH 28.6 pg (25.7-33.7); MCHC 32.8 g/dl (32.0-35.9); MEAN CELL VOLUME 87.5 fl (80-96); MEAN PLT VOLUME 9.3 fl (7.5-11.1); PLATELET COUNT 149 K/MM3 (134-434); RBC 4.21 M/mm3 (4.00-5.60); RDW 20.7 % (11.9-15.9); WHITE BLOOD COUNT 5.1 K/mm3 (4.0-10.0)
[2019-06-30 10:51] LABS: ALBUMIN 2.9 g/dl (3.4-5.0); BILIRUBIN,TOTAL 0.5 mg/dL (0.2-1); BLOOD UREA NITROGEN 11.6 mg/dL (7-18); CALCIUM 8.5 mg/dL (8.5-10.1); CREATININE 0.9 mg/dL (0.55-1.3); POTASSIUM 3.5 mmol/L (3.5-5.1); TOT PROT 6.2 g/dl (6.4-8.2)
--- NOTE | 2019-06-30 14:59 | PN ---
[facility] CIWA - CIWA Score Nausea/Vomitin-Mild Nausea/No Vomiting Muscle Tremors: 1-None Visible, but [place]hen[place] Anxiety: 1-Mildly Anxious Agitation: 0-Normal Activity Paroxysmal Sweats: 1-Minimal Palms Moist Orientation: 2-Disoriented Date<2 days Tacttile Disturbances: 0-None Auditory Disturbances: 0-None Visual Disturbances: 0-None Headache: 3-Moderate CIWA-Ar Total Score: 9 S COWS - Scale Resting Pulse: 0= DC 80 or Below Sweatin=Flushed/Facial Moisture Restless Observation: 0= Sits Still Pupil Size: 0= Normal to Room Light Bone or Joint Aches: 1= Mild Discomfort Runny Nose/ Eye Tearin= None GI Upset > 30mins: 0= None Tremor Observation of Outstretched Hands: 0= None Yawning Observation: 0= None Anxiety or Irritability: 1=Feels Anxious/Irritable Goose Flesh Skin: 0=Smooth Skin COWS Score: 4 [facility] Progress Note (SOAP) Subjective: Mild nausea, tremor, sweat. Chronic low back pain worse with withdrawal Objective: 06/30/19 14:57 Laboratory Tests 06/30/19 06/30/19 08:00 08:00 WBC 5.1 RBC 4.21 Hgb 12.1 Hct 36.8 MCV 87.5 D MCH 28.6 D MCHC 32.8 RDW 20.7 H Plt Count 149 MPV 9.3 Sodium 138 Potassium 3.5 Chloride 103 Carbon Dioxide 29 Anion Gap 6 L BUN 11.6 Creatinine 0.9 Est GFR (CKD-EPI)AfAm 107.97 Est GFR (CKD-EPI)NonAf 93.16 Random Glucose 86 Calcium 8.5 Total Bilirubin 0.5 AST 30 ALT 34 Alkaline Phosphatase 61 Total Protein 6.2 L Albumin 2.9 L Vital Signs - 24 hr 06/29/19 06/29/19 06/30/19 16:38 21:01 00:44 Temperature 98.7 F 97.4 F L Pulse Rate 70 76 Respiratory 16 18 18 Rate Blood Pressure 132/80 151/102 H 06/30/19 06/30/19 06/30/19 03:30 06:38 06:41 Temperature 98.1 F Pulse Rate 65 Respiratory 18 18 18 Rate Blood Pressure 125/74 02/07/20 02/07/20 09:11 12:39 Temperature 97.4 F L 98.3 F Pulse Rate 73 70 Respiratory 18 18 Rate Blood Pressure 110/69 149/95 PE Gnl: WDWN, in mild discomfort MS: awake, alert, nl language function CN: pupils 4mm, reactive Motor: nl Gait: deferred, pt in bed Assessment: 06/30/19 14:58 1. alcohol use disorder 2. opioid use disorder Plan: 1. continue withdrawal protocol for alcohol and opioids
[2019-06-30] MEDS: RIVAROXABAN 20 MG TABLET PO SCH (18:07)
[2019-06-30] MEDS: THIAMINE HCL 100 MG TABLET (FP) PO SCH (22:08)
[2019-07-01] MEDS ORDERED: chlordiazePOXIDE HCL 10 MG CAPSULE PO PRN
[2019-07-01] MEDS: BUPRENORPHINE/NALOXONE 8 MG/2 MG FILM PACKET SL SCH ×3 (05:00→22:23)
[2019-07-01] MEDS: chlordiazePOXIDE HCL 10 MG CAPSULE PO SCH ×3 (05:00→22:23)
[2019-07-01] MEDS: TIZANIDINE HCL 4 MG TABLET PO SCH ×3 (05:01→22:23)
[2019-07-01] MEDS: LEVOTHYROXINE NA 25 MCG TABLET (FP) PO SCH (06:07)
[2019-07-01] MEDS: HYDROCHLOROTHIAZIDE 12.5 MG CAPSULE (FP) PO SCH (10:53)
[2019-07-01] MEDS: PRENATAL VITAMINS W/ FOLIC ACID TABLET (FP) PO SCH (10:53)
--- NOTE | 2019-07-01 12:04 | PN ---
[facility] CIWA - CIWA Score Nausea/Vomitin-No Nausea/No Vomiting Muscle Tremors: None Anxiety: 2 Agitation: 0-Normal Activity Paroxysmal Sweats: 2 Orientation: 0-Oriented Tacttile Disturbances: 0-None Auditory Disturbances: 0-None Visual Disturbances: 0-None Headache: 0-None Present CIWA-Ar Total Score: 4 S COWS - Scale Resting Pulse: 0= SD 80 or Below Sweatin= No chills or Flushing Restless Observation: 0= Sits Still Pupil Size: 0= Normal to Room Light Bone or Joint Aches: 1= Mild Discomfort Runny Nose/ Eye Tearin= None GI Upset > 30mins: 0= None Tremor Observation of Outstretched Hands: 0= None Yawning Observation: 0= None Anxiety or Irritability: 2=Irritable/Anxious Goose Flesh Skin: 0=Smooth Skin COWS Score: 3 [facility] Progress Note (SOAP) Subjective: c/o mild withdrawal symptoms. Objective: 07/01/19 12:03 Vital Signs 07/01/19 07/01/19 06:40 08:48 Temperature 97.4 F L 97.6 F Pulse Rate 58 L 78 Respiratory 18 18 Rate Blood Pressure 128/81 127/80 Laboratory Last Values WBC 5.1 K/mm3 (4.0-10.0) 06/30/19 08:00 RBC 4.21 M/mm3 (4.00-5.60) 06/30/19 08:00 Hgb 12.1 GM/dL (11.7-16.9) 06/30/19 08:00 Hct 36.8 % (35.4-49) 06/30/19 08:00 MCV 87.5 fl (80-96) D 06/30/19 08:00 MCH 28.6 pg (25.7-33.7) D 06/30/19 08:00 MCHC 32.8 g/dl (32.0-35.9) 06/30/19 08:00 RDW 20.7 % (11.9-15.9) H 06/30/19 08:00 Plt Count 149 K/MM3 (134-434) 06/30/19 08:00 MPV 9.3 fl (7.5-11.1) 06/30/19 08:00 Sodium 138 mmol/L (136-145) 06/30/19 08:00 Potassium 3.5 mmol/L (3.5-5.1) 06/30/19 08:00 Chloride 103 mmol/L (98-107) 06/30/19 08:00 Carbon Dioxide 29 mmol/L (21-32) 06/30/19 08:00 Anion Gap 6 MMOL/L (8-16) L 06/30/19 08:00 BUN 11.6 mg/dL (7-18) 06/30/19 08:00 Creatinine 0.9 mg/dL (0.55-1.3) 06/30/19 08:00 Est GFR (CKD-EPI)AfAm 107.97 06/30/19 08:00 Est GFR (CKD-EPI)NonAf 93.16 06/30/19 08:00 Random Glucose 86 mg/dL (74-106) 06/30/19 08:00 Calcium 8.5 mg/dL (8.5-10.1) 06/30/19 08:00 Total Bilirubin 0.5 mg/dL (0.2-1) 06/30/19 08:00 AST 30 U/L (15-37) 06/30/19 08:00 ALT 34 U/L (13-61) 06/30/19 08:00 Alkaline Phosphatase 61 U/L (45-117) 06/30/19 08:00 Total Protein 6.2 g/dl (6.4-8.2) L 06/30/19 08:00 Albumin 2.9 g/dl (3.4-5.0) L 06/30/19 08:00 RPR Titer Nonreactive (NONREACTIVE) 06/30/19 08:00 Labs noted. Assessment: 07/01/19 12:03 AOX 3, in no respiratory distress. Full ROM, ambulating in the unit. Withdrawal symptoms. For d/c in AM. 07/01/19 12:04 Plan: continue detox. D/C in AM.
[2019-07-01] MEDS: RIVAROXABAN 20 MG TABLET PO SCH (17:57)
[2019-07-01] MEDS: THIAMINE HCL 100 MG TABLET (FP) PO SCH (22:23)
[2019-07-01] MEDS: MELATONIN 5 MG TABLETS PO PRN (22:23)
[2019-07-02] MEDS ORDERED: chlordiazePOXIDE HCL 10 MG CAPSULE PO ONE (05:00)
[2019-07-02] MEDS: BUPRENORPHINE/NALOXONE 8 MG/2 MG FILM PACKET SL SCH (05:09)
[2019-07-02] MEDS: LEVOTHYROXINE NA 25 MCG TABLET (FP) PO SCH (06:19)
[2019-07-02] MEDS: TIZANIDINE HCL 4 MG TABLET PO SCH (06:20)
[2019-07-02 07:06] VITALS: BP 110/67; PULSE 62; TEMP 98.3
--- NOTE | 2019-07-02 09:28 | DS ---
[facility] Detox Discharge Summary Admission Date: 06/29/19 Discharge Date: 07/02/19 - History Present History: Alcohol Dependence Additional Comments: 58 yearsj old male admitted on 06/28/19 for alcohol withdrawal sx management treated with librium detox regiment patient has completed librium regiment and tolerated well alert oriented x 3 speech clearly coherently steady gait patient is in suboxone program and agrees to return to the program for behavior and psychosocial therapies cardiac s1s2 regular rate rhythm ekg indicated left ventricular hypertrophy patient is asymptomatic at this time no chest pain no shortness of breath no dizziness respiratory clear lungs bilaterally on auscultation skin warm and dry Pertinent Past History: [facility] time for discharge: 29 minutes - Physical Exam Results Vital Signs: Vital Signs Temperature 98.3 F 07/02/19 07:05 Pulse Rate 62 07/02/19 07:05 Respiratory Rate 18 07/02/19 07:05 Blood Pressure 110/67 07/02/19 07:05 O2 Sat by Pulse Oximetry (%) Pertinent Admission Physical Exam Findings: alcohol withdrawal Laboratory Last Values WBC 5.1 K/mm3 (4.0-10.0) 06/30/19 08:00 RBC 4.21 M/mm3 (4.00-5.60) 06/30/19 08:00 Hgb 12.1 GM/dL (11.7-16.9) 06/30/19 08:00 Hct 36.8 % (35.4-49) 06/30/19 08:00 MCV 87.5 fl (80-96) D 06/30/19 08:00 MCH 28.6 pg (25.7-33.7) D 06/30/19 08:00 MCHC 32.8 g/dl (32.0-35.9) 06/30/19 08:00 RDW 20.7 % (11.9-15.9) H 06/30/19 08:00 Plt Count 149 K/MM3 (134-434) 06/30/19 08:00 MPV 9.3 fl (7.5-11.1) 06/30/19 08:00 Sodium 138 mmol/L (136-145) 06/30/19 08:00 Potassium 3.5 mmol/L (3.5-5.1) 06/30/19 08:00 Chloride 103 mmol/L (98-107) 06/30/19 08:00 Carbon Dioxide 29 mmol/L (21-32) 06/30/19 08:00 Anion Gap 6 MMOL/L (8-16) L 06/30/19 08:00 BUN 11.6 mg/dL (7-18) 06/30/19 08:00 Creatinine 0.9 mg/dL (0.55-1.3) 06/30/19 08:00 Est GFR (CKD-EPI)AfAm 107.97 06/30/19 08:00 Est GFR (CKD-EPI)NonAf 93.16 06/30/19 08:00 Random Glucose 86 mg/dL (74-106) 06/30/19 08:00 Calcium 8.5 mg/dL (8.5-10.1) 06/30/19 08:00 Total Bilirubin 0.5 mg/dL (0.2-1) 06/30/19 08:00 AST 30 U/L (15-37) 06/30/19 08:00 ALT 34 U/L (13-61) 06/30/19 08:00 Alkaline Phosphatase 61 U/L (45-117) 06/30/19 08:00 Total Protein 6.2 g/dl (6.4-8.2) L 06/30/19 08:00 Albumin 2.9 g/dl (3.4-5.0) L 06/30/19 08:00 RPR Titer Nonreactive (NONREACTIVE) 06/30/19 08:00 lab noted - Treatment Hospital Course: Detox Protocol Followed, Detoxed Safely, Responded well, Discharged Condition Good, Rehab Referral Accepted Patient has Accepted a Rehab Referral to: suboxone maintainence program - Medication Discharge Medications: Ambulatory Orders Buprenorphine/Naloxone [Suboxone 8Mg/2Mg Sl Film -] 1 each SL TID 03/22/19 Meloxicam 15 mg PO DAILY 03/22/19 Ferrous Sulfate 325 mg PO DAILY 05/02/19 Gabapentin 600 mg PO DAILY 05/02/19 Hydrochlorothiazide 12.5 mg PO DAILY 14 Days #14 tablet 07/01/19 Levothyroxine [Synthroid -] 25 mcg PO DAILY 14 Days #14 tablet 07/01/19 Rivaroxaban [Xarelto -] 20 mg PO DAILY 14 Days #14 tablet 07/01/19 Tizanidine HCl 4 mg PO TID 14 Days #42 tablet 07/01/19 - Diagnosis (1) Alcohol dependence with uncomplicated withdrawal Status: Acute (2) Encounter for monitoring Suboxone maintenance therapy Status: Chronic (3) Hypertension Status: Chronic Qualifiers: Hypertension type: essential hypertension Qualified Code(s): I10 - Essential (primary) hypertension (4) Hypothyroid Status: Chronic Qualifiers: Hypothyroidism type: unspecified Qualified Code(s): E03.9 - Hypothyroidism , unspecified (5) Substance induced mood disorder Status: Suspected (6) Anemia Status: Chronic Qualifiers: Anemia type: iron deficiency Iron deficiency anemia type: unspecified iron deficiency Qualified Code(s): D50.9 - Iron deficiency anemia, unspecified (7) DVT (deep venous thrombosis) Status: Chronic Qualifiers: DVT location: non-extremity vein Chronicity: chronic Qualified Code(s): I82.91 - Chronic embolism and thrombosis of unspecified vein - AMA Did Patient Leave Against Medical Advice: No CIWA Score - CIWA Score Nausea/Vomitin-No Nausea/No Vomiting Muscle Tremors: None Anxiety: 1-Mildly Anxious Agitation: 0-Normal Activity Paroxysmal Sweats: 1-Minimal Palms Moist Orientation: 0-Oriented Tacttile Disturbances: 0-None Auditory Disturbances: 0-None Visual Disturbances: 0-None Headache: 0-None Present CIWA-Ar Total Score: 2
== END 2019-07-02 08:40 | disposition home or self-care (01) | DRG 773 ==
LOC: YASAS 19:08 → Y3N 06-29 02:06
PROVIDERS: ADMIT Allergy & Immunology; ATTEND Allergy & Immunology
PROC: HZ2ZZZZ Detoxification Services for Substance Abuse Treatment (ICD-10-PCS; principal; 2019-06-29)
DX: F10.230 Alcohol dependence with withdrawal, uncomplicated (principal); F11.23 Opioid dependence with withdrawal; F19.24 Other psychoactive substance dependence with psychoactive substance-induced mood disorder; D50.9 Iron deficiency anemia, unspecified; G40.909 Epilepsy, unspecified, not intractable, without status epilepticus; E03.9 Hypothyroidism, unspecified; I10 Essential (primary) hypertension; M54.5 Low back pain; G89.29 Other chronic pain; Z86.718 Personal history of other venous thrombosis and embolism; Z79.01 Long term (current) use of anticoagulants; Z51.81 Encounter for therapeutic drug level monitoring; Z87.891 Personal history of nicotine dependence; Z98.890 Other specified postprocedural states
CPT/HCPCS: 36415; 80053; 85027; 86593; 93005; 93010

== ENCOUNTER 2021-12-16 12:56 | Emergency (ER) | payer OTHER ==
[2021-12-16 13:27] VITALS: BMI 27.9
[2021-12-16] MEDS ORDERED: ACETAMINOPHEN 1000 MG/100 ML BAG IVPB ONE (14:06)
[2021-12-16] MEDS ORDERED: FAMOTIDINE 20 MG/50 ML IVPB 20 MG/50 ML MG IVPB ONE ×2 (14:06→14:18)
[2021-12-16] MEDS ORDERED: MAG HYDROX/AL HYDROX/SIMETH 30 ML UNIT-DOSE CUP PO ONE (14:06)
[2021-12-16] MEDS ORDERED: diazePAM CARPU-JECT 10 MG/2 ML DISP.SYRIN IVPUSH ONE ×2 (14:06→15:35)
[2021-12-16] MEDS ORDERED: SODIUM CHLORIDE 0.9% 500 ML INFUS.BAG IV ONE ×3 (14:06→17:22)
[2021-12-16 14:15] LABS: HEMATOCRIT 42.6 % (35.4-49); HEMOGLOBIN 13.5 GM/dL (11.7-16.9); MCH 30.4 pg (25.7-33.7); MCHC 31.6 g/dl (32.0-35.9); MEAN PLT VOLUME 10.4 fl (7.5-11.1); RBC 4.43 M/mm3 (4.00-5.60); RDW 19.2 % (11.9-15.9); WHITE BLOOD COUNT 11.4 K/mm3 (4.0-10.0)
[2021-12-16] MEDS ORDERED: diazePAM CARPU-JECT 10 MG/2 ML DISP.SYRIN ONE ×2 (14:17→15:41)
[2021-12-16] MEDS ORDERED: ACETAMINOPHEN INJECTION 100 ML IVPB ONE (14:17)
[2021-12-16] MEDS ORDERED: MAG HYDROX/AL HYDROX/SIMETH 30 ML UNIT-DOSE CUP ONE (14:17)
[2021-12-16 14:29] LABS: ACTIVATED PTT 46.6 SECONDS (25.2-36.5)
[2021-12-16 14:33] LABS: INR 8.76 (0.83-1.09)
[2021-12-16 14:38] LABS: CHLORIDE 90 mmol/L (98-107); SODIUM 123 mmol/L (136-145)
[2021-12-16 14:41] LABS: CALCIUM 8.3 mg/dL (8.5-10.1); GLUCOSE,RANDOM 64 mg/dL (74-106); LIPASE 210 U/L (73-393)
[2021-12-16 14:42] LABS: ALBUMIN 3.3 g/dl (3.4-5.0); CO2 6 mmol/L (21-32); MAGNESIUM 2.3 mg/dL (1.8-2.4)
[2021-12-16 14:44] LABS: CREATININE 1.5 mg/dL (0.55-1.3); PHOSPHOROUS 6.5 mg/dL (2.5-4.9)
[2021-12-16 14:46] LABS: BILIRUBIN,TOTAL 7.6 mg/dL (0.2-1); TOT PROT 8.5 g/dl (6.4-8.2)
[2021-12-16 14:47] LABS: ALK PHOS 208 U/L (45-117)
[2021-12-16] MEDS ORDERED: DEXTROSE 50%-WATER - 25 GM/50 ML VIAL IVPUSH ONE (14:49)
[2021-12-16 14:50] LABS: N-TERMINAL BNP 1653.8 pg/ml (5-125)
[2021-12-16] MEDS ORDERED: DEXTROSE 50%-WATER 25 GM/50 ML DISP.SYRIN ONE (14:52)
[2021-12-16 14:53] LABS: ANISOCYTOSIS 1+; MACROCYTOSIS 1+
[2021-12-16 15:01] LABS: PLATELET COUNT 52 10^3/uL (134-434); PLATELET ESTIMATE DECREASED
[2021-12-16 16:37] LABS: PROTHROMBIN TIME (PATIENT) 99.2 SEC (9.7-13.0)
[2021-12-16 16:40] LABS: ACTIVATED PTT 46.2 SECONDS (25.2-36.5)
[2021-12-16 16:42] LABS: ARTERIAL BLOOD GAS BASE EXCESS -27.2 mmol/L (-2-2); ARTERIAL BLOOD GAS PCO2 < 16.70 mmHg (35-45); ARTERIAL BLOOD GAS PO2 162.2 mmHg (80-100)
[2021-12-16 16:43] LABS: ALLENS TEST POSITIVE
[2021-12-16 16:45] LABS: ARTERIAL BLOOD GAS pH 6.976 (7.350-7.450)
[2021-12-16] MEDS ORDERED: FOLIC ACID INJECTION - 1 MG, THIAMINE HCL 100 MG, MULTIVIT INJECTION ADULT 10 ML in SOD... IVPB ONE (16:49)
[2021-12-16 16:54] LABS: BLOOD UREA NITROGEN 11.4 mg/dL (7-18); CALCIUM 7.9 mg/dL (8.5-10.1)
[2021-12-16 16:55] LABS: ALBUMIN 3.3 g/dl (3.4-5.0)
[2021-12-16 16:57] LABS: CREATININE 1.4 mg/dL (0.55-1.3)
[2021-12-16 16:59] LABS: BILIRUBIN,TOTAL 7.2 mg/dL (0.2-1); TOT PROT 7.9 g/dl (6.4-8.2)
[2021-12-16 17:32] LABS: INR 8.44 (0.83-1.09)
[2021-12-16 17:44] VITALS: BP 168/101; PULSE 96; RESP 18; TEMP 96
[2021-12-16] MEDS ORDERED: fentaNYL CITRATE 250 MCG/5 ML VIAL IVPUSH ONE (18:48)
== END 2021-12-16 22:15 | disposition short-term general hospital (02) ==
LOC: JER 12:56
PROC: 3E0333Z Introduction of Anti-inflammatory into Peripheral Vein, Percutaneous Approach (ICD-10-PCS; principal; 2021-12-16)
PROC: 3E033GC Introduction of Other Therapeutic Substance into Peripheral Vein, Percutaneous Approach (ICD-10-PCS; 2021-12-16)
PROC: 3E033NZ Introduction of Analgesics, Hypnotics, Sedatives into Peripheral Vein, Percutaneous Approach (ICD-10-PCS; 2021-12-16)
PROC: 3E033NZ Introduction of Analgesics, Hypnotics, Sedatives into Peripheral Vein, Percutaneous Approach (ICD-10-PCS; 2021-12-16)
PROC: 3E033GC Introduction of Other Therapeutic Substance into Peripheral Vein, Percutaneous Approach (ICD-10-PCS; 2021-12-16)
PROC: 3E033NZ Introduction of Analgesics, Hypnotics, Sedatives into Peripheral Vein, Percutaneous Approach (ICD-10-PCS; 2021-12-16)
PROC: 3E033NZ Introduction of Analgesics, Hypnotics, Sedatives into Peripheral Vein, Percutaneous Approach (ICD-10-PCS; 2021-12-16)
DX: F10.20 Alcohol dependence, uncomplicated (principal); E87.2 Acidosis; I10 Essential (primary) hypertension; K72.00 Acute and subacute hepatic failure without coma
CPT/HCPCS: 0241U-QW; 36415; 36600; 71045-TC-FY; 80053; 82010; 82550; 82553; 82803; 82962; 83690; 83735; 83880; 84100; 84443; 84484; 85025; 85610; 85730; 93005; 93010; 99285-25